=== PATIENT | female | born 1995 | race Caucasian/White ===

== ENCOUNTER 2022-02-26 11:53 | Outpatient (CLI) | payer OTHER, SELFPAY ==
[2022-02-26 12:54] LABS: Basophils Absolute Auto 0.1 K/mm3 (0.0-0.1); Basophils Percent Auto 0.3 % (0.2-1.2); Eosinophils Absolute Auto 0.2 K/mm3 (0-0.3); Eosinophils Percent Auto 1.1 % (0-4.4); Hematocrit 38.5 % (37.0-47.0); Immature Granulocyte Absolute 0.07 K/mm3 (0.00-0.031); Immature Granulocyte Percent A 0.5 % (0-0.5); Lymphocytes Absolute Auto 3.62 K/mm3 (0.9-3.2); Mean Corpuscular HGB Conc 33.8 g/dl (32-36); Mean Corpuscular Hemoglobin 29.5 pg (26-34); Mean Corpuscular Volume 87.3 fl (80-100); Mean Platelet Volume 11.4 fl (7.4-10.4); Monocytes Absolute Auto 0.7 K/mm3 (0.1-0.6); Monocytes Percent Auto 4.5 % (2.6-8.5); Neutrophils Absolute Auto 9.9 K/mm3 (1.3-6.7); Neutrophils Percent Auto 68.6 % (45.5-73.1); Platelet Count Result 270 k/mm3 (150-375); Red Blood Count 4.41 M/mm3 (4.2-5.4); Red Cell Distribution Width 11.7 % (11.5-14.5); White Blood Count 14.5 K/mm3 (4.5-10.0)
[2022-02-26 13:52] LABS: HIV 1/2 Ab P24 Ag Result Negative (Negative)
[2022-02-26 14:17] LABS: Hepatitis B Surface Antigen Negative (Negative); Rubella IgG Antibody 22.6 IU/ML
[2022-02-28 06:16] LABS: Rapid Plasma Reagin Non-Reactive (NonReactive)
[2022-03-01 08:37] LABS: CMV IgG Antibody <0.60 U/mL (<0.60)
[2022-03-07 13:06] LABS: SMA 2.0 RISK VARIANT NOT DETECTED
[2022-03-17 15:24] LABS: SMA Results Received Yes
== END 2022-02-26 11:54 | disposition home or self-care (01) ==
LOC: ANHLAB 11:55
PROVIDERS: PCP Family Medicine; Visit Provider Obstetrics & Gynecology
DX: N91.2 Amenorrhea, unspecified (principal)
CPT/HCPCS: 36415; 81329; 84702; 85025; 86592; 86644; 86703; 86747; 86762; 86787; 86850; 86900; 86901; 87086; 87340; G0432

== ENCOUNTER 2022-03-09 16:09 | Outpatient (CLI) | payer OTHER, SELFPAY ==
--- NOTE | ~2022-03-09 | US_ITS ---
EXAMINATION: US OB <=14 wk fetus w TV DATE: 03/09/2022 16:59 INDICATION: Evaluate gestational age. TECHNIQUE: Real-time transabdominal obstetric ultrasound. FINDINGS: No prior studies for comparison. The uterus measures 15 x 5.8 x 9.6 cm. There is an intrauterine gestational sac, with pole iden tified. The crown rump length measures 6.1 cm, which correlates with a estimated gestational age of 13 weeks 1 day. heart tones are identified measuring 165 bpm. Right ovary is normal measuring 3.6 x 2.4 x 2.4 cm. Left ovary is nonvisualized. No free fluid identified in the pelvic cul-de-sac. IMPRESSION: 1. SL IUP with an EGA of 13 weeks, 1 days (EDC by current ultrasound of 09/13/2022). Reviewed, dictated and finalized at location A. IMPRESSION: 1. SL IUP with an EGA of 13 weeks, 1 days (EDC by current ultrasound of 022).
== END 2022-03-09 16:10 | disposition home or self-care (01) ==
PROVIDERS: PCP Family Medicine; Visit Provider Obstetrics & Gynecology
DX: Z34.91 Encounter for supervision of normal pregnancy, unspecified, first trimester (principal); N94.89 Other specified conditions associated with female genital organs and menstrual cycle; Z3A.13 13 weeks gestation of pregnancy
CPT/HCPCS: 76801; 76817

== ENCOUNTER 2022-04-27 15:28 | Outpatient (CLI) | payer OTHER, SELFPAY ==
--- NOTE | ~2022-04-27 | US_ITS ---
EXAMINATION: US OB /maternal detail DATE: 04/27/2022 16:40 INDICATION: Encounter for supervision of other normal . TECHNIQUE: Real-time ultrasound of the pelvis was performed. COMPARISON: None. FINDINGS: There is a single living fetus in breech presentation. The placenta is anterior. heart rate is 142 beats per minute (bpm). Amniotic fluid volume is subjectively normal. The following biometric data were obtained: Biparietal diameter (BPD): 4.6 cm; head circumference (HC): 18.1 cm; abdominal circumference (AC): 15 .5 cm; femur length (FL): 3.4 cm. These measurements are concordant. Estimated weight is 367 g +/- 55 g, which correlates with the 73rd percentile when 09/13/22 is u sed as estimated date of delivery. As single measurements, these parameters are each equal to the following estimated gestational ages: BPD: 19 weeks 5 days. HC: 20 weeks 3 days. AC: 20 weeks 5 days. FL: 20 weeks 5 days. estimated gestational age based solely on measurements from this exam is 20 weeks 3 days +/- 1 weeks 3 days. The cerebral ventricles, cerebellum, cisterna magna, nuchal fold, lip, and visualized portions of the spine are normal. The heart is normal. The diaphragm, stomach, kidneys, and bladder are normal. Ther e are two umbilical arteries to yield a 3-vessel cord. The cord insertion is normal. IMPRESSION: 1. Single living fetus in breech presentation. 2. Estimated weight is 367 g +/- 55 g, which correlates with the 73rd percentile when 09/13/22 is used as estimated date of delivery. This date was set by ultrasound on 03/09/2022. 3. Normal anatomic survey. Reviewed, dictated and finalized at location A. IMPRESSION: 1. Single living fetus in breech presentation. 2. Estimated weight is 367 g +/- 55 g, which correlates with the 73rd pe rcentile when 09/13/22 is used as estimated date of delivery. This date was set by ultrasound on 03/09/2022. 3. Normal anatomic survey.
== END 2022-04-27 15:29 | disposition home or self-care (01) ==
PROVIDERS: PCP Family Medicine; Visit Provider Obstetrics & Gynecology
DX: Z34.82 Encounter for supervision of other normal pregnancy, second trimester (principal); Z3A.20 20 weeks gestation of pregnancy
CPT/HCPCS: 76805

== ENCOUNTER 2022-07-18 09:14 | Outpatient (CLI) | payer OTHER, SELFPAY ==
[2022-07-18 10:30] LABS: Basophils Absolute Auto 0.1 K/mm3 (0.0-0.1); Basophils Percent Auto 0.4 % (0.2-1.2); Eosinophils Absolute Auto 0.4 K/mm3 (0-0.3); Eosinophils Percent Auto 2.5 % (0-4.4); Hematocrit 34.5 % (37.0-47.0); Hemoglobin 11.1 g/dL (12.0-15.0); Immature Granulocyte Absolute 0.16 K/mm3 (0.00-0.031); Immature Granulocyte Percent A 1.2 % (0-0.5); Lymphocytes Absolute Auto 2.98 K/mm3 (0.9-3.2); Lymphocytes Percent Auto 21.7 % (18.3-44.2); Mean Corpuscular HGB Conc 32.2 g/dl (32-36); Mean Corpuscular Hemoglobin 29.2 pg (26-34); Mean Corpuscular Volume 90.8 fl (80-100); Mean Platelet Volume 11.1 fl (7.4-10.4); Monocytes Absolute Auto 0.8 K/mm3 (0.1-0.6); Monocytes Percent Auto 5.7 % (2.6-8.5); Neutrophils Absolute Auto 9.4 K/mm3 (1.3-6.7); Neutrophils Percent Auto 68.5 % (45.5-73.1); Platelet Count Result 243 k/mm3 (150-375); Red Cell Distribution Width 12.7 % (11.5-14.5); White Blood Count 13.8 K/mm3 (4.5-10.0)
[2022-07-18 10:39] LABS: Glucose 1 Hour PP 50gm Dose 108 mg/dL
[2022-07-18 11:20] LABS: HIV 1/2 Ab P24 Ag Result Negative (Negative)
== END 2022-07-18 09:15 | disposition home or self-care (01) ==
PROVIDERS: PCP Family Medicine; Visit Provider Obstetrics & Gynecology
DX: Z34.90 Encounter for supervision of normal pregnancy, unspecified, unspecified trimester (principal); Z3A.00 Weeks of gestation of pregnancy not specified
CPT/HCPCS: 36415; 82947; 85025; 86703; G0432

== ENCOUNTER 2022-09-11 17:42 | Observation (INO) | payer OTHER, SELFPAY ==
--- NOTE | 2022-09-11 20:43 | OBADM ---
This patient, Francheska Watters, admitted to the OB room Labor/Delivery/Recovery 106 for observation. Patient/family oriented to hospital policies and general routines including ID bracelet, bed and alarms, visiting hours, pain management, procedures, bathroom and other care routines, personal items, smoking policy, room service/diet, and visiting hours. Patient/Family are encouraged to report perceived risks to care and to ask questions if they do not understand what they are told or what they should do.
--- NOTE | 2022-09-11 20:52 | PC.NURSE ---
patient educated on when to return to OB department. patient verbalizes understanding on when to call OB or come in. No complaints or concerns at this time.
--- NOTE | 2022-09-12 15:51 | PM.OBTRLD ---
OB - Triage/Final Diagnosis Visit Information Date of evaluation: 09/11/22 Reason for evaluation: threatened labor Comments/Additional reasons for admission: I have assessed the risk for this patient, Francheska Watters, and determined that she would benefit from observation care.
== END 2022-09-11 21:05 | disposition home or self-care (01) ==
PROVIDERS: Admitting Provider Obstetrics & Gynecology; PCP Family Medicine; Visit Provider Student in an Organized Health Care Education/Training Program
DX: O47.1 False labor at or after 37 completed weeks of gestation (principal); Z3A.39 39 weeks gestation of pregnancy
CPT/HCPCS: 59025; G0378; G0379

== ENCOUNTER 2022-09-13 06:40 | Inpatient (IN) | payer OTHER, SELFPAY ==
[2022-09-13] VITALS (172 sets, daily range): BP systolic 90–152; BP diastolic 47–107; PULSE 68–199; TEMP 36.7–37.5; O2SAT 95–100; BMI 33.7
--- NOTE | 2022-09-13 07:55 | WPDOBADMIT ---
Obstetrics - Admit Note Admission Note: record reviewed. No pertinent additions to the history and/or any subsequent changes in the physical findings that are not consistent with the expected course of the were found. Additions to the history and/or subsequent changes in the physical findings follow: Francheska is a 27yo @ 39.6wks who presented in labor. - Covid infection in 10/2021 FHT's: 130's/mod chandu/ + accels/ no decels - cat 1 TOCO: ctx's q2-4min Cervix: 2.5/90/-2 Membranes: intact Presentation: cephalic Will monitor contractions; if no change in 2-4 hours will start Pitocin augmentation
--- NOTE | 2022-09-13 08:00 | WPDHPUPDATE1 ---
History and Physical Update Update Date/Time: 09/13/22 08:00 History and Physical has been reviewed, including an updated exam of the patient. There are NO changes in the patient's condition. Risks, benefits, and alternatives have been discussed and questions answered. Patient agrees to proceed with procedure.
[2022-09-13 09:28] LABS: Basophils Absolute Auto 0.1 K/mm3 (0.0-0.1); Basophils Percent Auto 0.4 % (0.2-1.2); Eosinophils Absolute Auto 0.2 K/mm3 (0-0.3); Eosinophils Percent Auto 1.1 % (0-4.4); Hematocrit 39.6 % (37.0-47.0); Hemoglobin 12.9 g/dL (12.0-15.0); Immature Granulocyte Absolute 0.09 K/mm3 (0.00-0.031); Immature Granulocyte Percent A 0.6 % (0-0.5); Immature Platelet Fraction Pct 16.1 % (0.9-11.2); Lymphocytes Absolute Auto 3.09 K/mm3 (0.9-3.2); Lymphocytes Percent Auto 19.3 % (18.3-44.2); Mean Corpuscular HGB Conc 32.6 g/dl (32-36); Mean Corpuscular Hemoglobin 28.9 pg (26-34); Mean Corpuscular Volume 88.6 fl (80-100); Mean Platelet Volume 13.5 fl (7.4-10.4); Monocytes Absolute Auto 0.9 K/mm3 (0.1-0.6); Monocytes Percent Auto 5.3 % (2.6-8.5); Neutrophils Absolute Auto 11.8 K/mm3 (1.3-6.7); Neutrophils Percent Auto 73.3 % (45.5-73.1); Platelet Count Result 220 k/mm3 (150-375); Red Blood Count 4.47 M/mm3 (4.2-5.4); Red Cell Distribution Width 13.4 % (11.5-14.5)
--- NOTE | 2022-09-13 10:08 | LDADM ---
This patient, Francheska Watters, was admitted to Labor/Delivery/Recovery 106 on 09/13/22 at 06:40. Plans for labor, pain management and were discussed with patient. Patient/family oriented to hospital policies and general routines including ID bracelet, bed and alarms, visiting hours, pain management, procedures, bathroom and other care routines, personal items, smoking policy, room service/diet and guest tray routines, security routines, and visiting hours. Patient/Family are encouraged to report perceived risks to care and to ask questions if they do not understand what they are told or what they should do. See OBIX for further documentation.
--- NOTE | 2022-09-13 11:53 | PM.OBPNLAB ---
Pain Control Date/time seen: 09/13/22 11:53 Pain control: tolerating well Pelvic Exam Dilation (cm): 4 Effacement (%): 90 station: -1 Amniotic membrane status: Intact Contractions Monitor mode: External Contraction frequency: 2 (-4) Contraction pattern: Regular Status status: Category l Assessment and Plan Plan: continuous present management Comments: - will avoid AROM/pitocin if making cervical change as she desires to go natural
[2022-09-13] MEDS: fentaNYL CITRATE INJ (*CRX) 100 MCG/2 ML VIAL 50 MCG IV PUSH (15:12)
[2022-09-13] MEDS: LACTATED RINGERS 1,000 ML 125 ML IV CONT ×3 (15:47→21:18)
[2022-09-13 16:13] LABS: Rapid Plasma Reagin Non-Reactive (NonReactive)
--- NOTE | 2022-09-13 16:40 | WPDANESEPP ---
Anes - Eval Pre Procedure Procedure: Labor epidural Date/Time: 09/13/22 16:40 Surgeon: Sergo Preop Diagnosis: Abdominal pain with contractions Pre Op Diagnosis: Labor Patient Data Age: 27 Gender: F Height: 1.68 m Weight: 95 kg Last Vital Signs Temp 98.2 F 09/13/22 12:39 Pulse 83 09/13/22 16:00 BP 122/58 L 09/13/22 16:00 O2 Del Method Room Air 09/13/22 07:00 Allergies Allergy/AdvReac Type Severity Reaction Status Date / Time sertraline AdvReac Unknown Nausea Verified 09/07/22 15:15 Home Medications Medication Instructions Recorded Confirmed Type doxylamine succinate 25 mg tablet 25 mg PO QHS #60 tabs 02/01/22 08/24/22 Rx (Unisom (doxylamine)) prenat.vits,martha,[id number] 1 tablet PO DAILY 02/01/22 08/24/22 History pyridoxine (vitamin B6) 25 mg 25 mg PO TID #120 tabs 02/01/22 08/24/22 Rx tablet magnesium oxide 400 mg PO DAILY #90 tabs 03/31/22 08/24/22 Rx riboflavin (vitamin B2) 100 mg 400 mg PO DAILY 90 days #360 tabs 03/31/22 08/24/22 Rx tablet Laboratory Tests 09/13/22 09/13/22 09/13/22 07:59 07:59 09:10 WBC 16.0 K/mm3 H K/mm3 (4.5-10.0) RBC 4.47 M/mm3 M/mm3 (4.2-5.4) Hgb 12.9 g/dL g/dL (12.0-15.0) Hct 39.6 % % (37.0-47.0) MCV 88.6 fl fl (80-100) MCH 28.9 pg pg (26-34) MCHC 32.6 g/dl g/dl (32-36) RDW 13.4 % % (11.5-14.5) Plt Count 220 k/mm3 k/mm3 (150-375) MPV 13.5 fl H fl (7.4-10.4) Immature Gran % (Auto) 0.6 % H % (0-0.5) Neut % (Auto) 73.3 % H % (45.5-73.1) Lymph % (Auto) 19.3 % % (18.3-44.2) Sutton % (Auto) 5.3 % % (2.6-8.5) Eos % (Auto) 1.1 % % (0-4.4) Baso % (Auto) 0.4 % % (0.2-1.2) Lymph # (Auto) 3.09 K/mm3 K/mm3 (0.9-3.2) Sutton # (Auto) 0.9 K/mm3 H K/mm3 (0.1-0.6) Eos # (Auto) 0.2 K/mm3 K/mm3 (0-0.3) Baso # (Auto) 0.1 K/mm3 K/mm3 (0.0-0.1) Abs Immat Gran (auto) 0.09 K/mm3 H K/mm3 (0.00-0.031) Absolute Neuts (auto) 11.8 K/mm3 H K/mm3 (1.3-6.7) Absolute Nucleated RBC 0.0 K/mm3 K/mm3 (0.0-0.012) Nucleated RBC % 0.0 % % (0.0-0.2) % Immature Plt Fraction 16.1 % H % (0.9-11.2) RPR Non-reactive (NonReactive) Blood Type O Positive Antibody Screen Negative : gestational age HCG: positive Patient hx anesthesia problems: none Family hx anesthesia problems: none Results Review: All pre-operative results and documents have been reviewed as part of the pre-operative evaluation. [facility] Past Medical History Medical History (Updated 09/13/22 @ 16:42 by Rene Feldman CRNA) Anxiety Depression Obesity and not yet delivered Family History Family History Grandparent Family history of hypercholesterolemia Hypertension Family history of elevated blood lipids Family history of cardiovascular disease Cerebrovascular accident Skin cancer Father Depression Mother Family history of elevated blood lipids Social History Social History Smoking status: Never smoker Alcohol intake: never Substance use: never Substance use type: does not use Lack of Transportation: No Lack of Food: Never True Current Housing: I Do Not Have Housing Concerned About Future Housing: No Difficulty Paying Gas/Electric Bills: No Difficulty Paying for Meds: No Currently Unemployed: No Education: Associate Degree Difficulty w/ Childcare or Family Care: No 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
[2022-09-13] MEDS: ONDANSETRON INJ 4 MG/2 ML VIAL IV PUSH (17:03)
[2022-09-13] MEDS: FAMOTIDINE 20 MG/2 ML VIAL (17:04)
--- NOTE | 2022-09-13 17:16 | PM.OBPNLAB ---
Pain Control Date/time seen: 09/13/22 17:16 Pain control: epidural Pelvic Exam Dilation (cm): 4 (.5) Effacement (%): 90 station: -1 Amniotic membrane status: Ruptured (clear 1715) Contractions Monitor mode: External Contraction frequency: 2 (-4) Contraction pattern: Regular Status status: Category ll Comments: occasional variables Assessment and Plan Assessment: induction ongoing Plan: continuous present management Comments: check in 2 hours; if no change, start pitocin augmentation w/ IUPC
[2022-09-13] MEDS: OXYTOCIN 30 UNITS/NS 500 ML 30 UNITS/500 ML BAG IV CONT (23:15)
--- NOTE | 2022-09-13 23:29 | PM.OBPRVD ---
OB - Delivery Note Procedure Delivery date: 09/13/22 Delivery augmentation: Rupture of Membranes Delivery monitor: External FHT and External Uterine Route of delivery: Laceration Description: Periurethral (bilateral) Delivery repair: vicryl Specimen: Yes (placenta) Quantitative Blood Loss (ml): 100 Anesthesia type: Epidural Disposition: Floor Baby Date of : 09/13/22 Time of : 23:11 Weeks of gestation at delivery: 39 (.6) Infant gender: Female Weight (pounds): 6 Weight (ounces): 11 presentation: vertex position: Left Occiput Anterior Placenta delivery description: Expressed Cord Vessel Description: 3 Vessels, Clamped/Cut and Delayed Cord Clamping score one minute: 8 score five minutes: 9 Narrative: Francheska progressed to complete dilation with strong desire to push. She pushed with good maternal effort and delivered the head over intact perineum. No nuchal cord was palpated and she easily delivered the 's shoulders and body without complication. The was immediately placed skin to skin where spontaneous cry was heard and bulb suction was performed. Pedi was present at delivery due to thick meconium. Delayed cord clamping was performed. The umbilical cord was then clamped and cut. With Pitocin running and gentle downward traction on the cord, the placenta delivered without complications. Bimanual massage was performed and slight uterine atony was noted but resolved with massage. She was examined and bilateral periurethral lacerations were noted and repaired using 3-0 Vicryl in a single stitch. Good uterine tone with minimal bleeding was noted. Sponge, lap, instrument, and needle counts were correct at the end the procedure. Mom and baby were left bonding in the birthing suite in stable condition. [facility] Delivery Billing Delivery Delivery: Delivery Charge
[2022-09-14] VITALS (25 sets, daily range): BP systolic 102–124; BP diastolic 43–77; PULSE 84–174; RESP 16–18; TEMP 36.3–36.9; O2SAT 97–100
[2022-09-14] MEDS: BENZOCAINE 20% AER SPR (*SP) 56 GM CAN 1 SPRAY TOPICAL (01:23)
--- NOTE | 2022-09-14 02:20 | OBPPTRN ---
Patient transferred to post room #286 via W/C. Support person present. Oriented to unit, room, information board, rooming in, admission packet and security measures. Patient verbalizes understanding.
[2022-09-14 05:28] LABS: Hematocrit 34.6 % (37.0-47.0); Hemoglobin 11.7 g/dL (12.0-15.0)
--- NOTE | 2022-09-14 08:58 | WPDANLDPN2 ---
Anes-Prog Note L&D Date/Time: 09/14/22 08:58 Comfortable throughout: labor and delivery Neuraxial method: epidural Epidural/Spinal procedure site: clean & non-tender Neuro status: Neuro function grossly intact. Cardiovascular status: normal Respiratory status: normal Airway patency: baseline Mental status: baseline Post-Op hydration status: normal Vital Signs: Last Vital Signs Temp 98.3 F 09/14/22 08:53 Pulse 90 09/14/22 08:53 Resp 16 09/14/22 08:53 BP 102/43 L 09/14/22 08:53 Pulse Ox 98 09/14/22 08:53 O2 Del Method Room Air 09/14/22 02:35 Pain score (VAS): 0 I/O: Intake & Output 09/13/22 09/14/22 09/14/22 23:59 07:59 15:59 Intake Total 2000 Output Total 100 350 Balance 1900 -350 Post-procedural complaints: none Patient feedback: Patient satisfied with anesthetic care.
[2022-09-14] MEDS: MULTIVIT/MIN/PREN/FOL AC/IRON TABLET 1 TAB PO (09:19)
[2022-09-14] MEDS: DOCUSATE SODIUM 100 MG CAPSULE PO (09:19)
--- NOTE | 2022-09-14 09:52 | PC.NURSE ---
On 09/14/22, the student, Calista Ervin, provided care and completed [facility] documentation on this patient. I have reviewed the student's documentation and agree with the findings.
--- NOTE | 2022-09-14 12:44 | PM.OBPNVD ---
OB - PN: Subj Subjective Date/time seen: 09/14/22 12:44 Narrative: PPD#1 Francheska reports doing well today. 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 Her pain is controlled. She is tolerating regular diet, voiding, passing gas, and ambulating without issues. She is breast feeding. OB - PN: Obj Data Labs 09/14/22 05:19 Labs: Laboratory Results - last 24 hr 09/13/22 09/14/22 07:59 05:19 Hgb 11.7 L Hct 34.6 L RPR Non-reactive OB - PN A/P Assessment and Plan (1) Normal vaginal delivery of first : Code(s): O80 - Encounter for full-term uncomplicated delivery Status: Acute Plan day: 1 Plan: routine care and discharge home (tomorrow AM) Comments: - Pelvic rest; take meds as prescribed - ER return precautions: fever, n/v/abd pain, bleeding, HTN Time Spent With Patient Time: Total time spent is greater than 50% in coordination of care (as documented) at patient's floor/unit and/or counseling patient: Review of Systems Constitutional: Constitutional: Denies chills, Denies fever(s) and Denies headache(s) Eyes: Eyes: Denies change in vision ENT: Denies dizziness and Denies headache(s) Cardiovascular: Cardiovascular: Denies chest pain, Denies palpitations and Denies dyspnea Respiratory: Respiratory: Denies cough and Denies dyspnea Gastrointestinal: Gastrointestinal: Denies nausea and Denies vomiting Neurologic: Denies dizziness and Denies headache(s) Endocrine: Endocrine: Denies palpitations Exam Const: General: cooperative, comfortable and no acute distress Orientation/consciousness: patient oriented x3 Resp: Effort & Inspection: normal respiratory effort Auscultation: clear to auscultation bilaterally Cardio: Rate: regular rate GI: Inspection: non-distended GI Palp: No abdominal tenderness and Yes Soft to palpation Auscultation: normal bowel sounds : Other: fundus firm Skin: General skin exam: normal color Neuro: General: patient oriented x3 Extrem: General: normal to inspection Psych: Appearance: grossly normal Affect: normal affect Attitude: cooperative
[2022-09-15 07:45] VITALS: BP 121/71; PULSE 80; RESP 16; TEMP 37.2; O2SAT 98
[2022-09-15 08:00] VITALS: PULSE 80; RESP 16; O2SAT 98
[2022-09-15] MEDS: DOCUSATE SODIUM 100 MG CAPSULE PO (09:32)
[2022-09-15] MEDS: MULTIVIT/MIN/PREN/FOL AC/IRON TABLET 1 TAB PO (09:33)
--- NOTE | 2022-09-15 10:04 | PC.NURSE ---
[id number] Introductions were made, then consulted with patient to assess needs related to . Mother led the conversation with her?plans to feed?her infant and the?experience so far. Mother voiced understanding of information and will call for the next breastfeed. Reported to primary RN.
--- NOTE | 2022-09-15 10:25 | PC.NURSE ---
Patient viewed the discharge video Mother & Baby Care, The First Two Weeks . Patient was given the opportunity and encouraged to ask questions. Patient verbalized understanding of information shared and has been given the mother/baby guide for home reference.
--- NOTE | 2022-09-15 11:46 | PC.NURSE ---
[id number] Mother has infant independently latched to the left breast using cross cradle positioning. There is rocking motion, good suck/swallow ratios and mother denies pain. After 15 minutes of self detached and mother's nipple looked misshaped in a pinched appearance. After changing a wet diaper was demonstrating feeding cues. Mother was willing to practice football positioning to improve 's latching. latched optimally with big, open, wide gape demonstrating rocking motion, suck/swallow/pausing and mother states there's no pain to the left breast using football positioning. Father's questions were answered. Education was reviewed using laminated latch 1-2-3. Nipple was not misshaped after the . Mother encouraged to work with on big, open, deep latch and changing positioning while infant is learning optimal latching. Mother is feeding appropriately for growth of infant and understands stimulating to eat if needed. has had appropriate feedings in the last 24 hours meets the outcomes for weight, output and jaundice at this time. Mother states she is confident to continue effectively her at home or when to call for assistance and denies any additional assistance or education at this time. Reinforced understanding of milk production, transition of milk, signs of adequate intake, prevention/relief of engorgement, responsive after visualizing feeding cues, the different methods of stimulating infant to breastfeed 2-3 hours after the start of the last feeding, community resources, medication information reviewed per [employer] and when to call a provider using the resource of the mom and baby guide/[facility] website. Parents voiced understanding of the education shared. Reported to the primary RN.
[2022-09-16 10:07] VITALS: BP 127/84; PULSE 85; RESP 16; TEMP 37.1; O2SAT 100
--- NOTE | 2022-09-19 11:07 | PM.OBDSVD ---
DS: Admitting Diagnosis Discharge Date 09/15/22 Admitting Diagnosis Active labor DS: Discharge Diagnosis Discharge Diagnosis (1) Normal vaginal delivery of first : Code(s): O80 - Encounter for full-term uncomplicated delivery Status: Acute OB - DS: Summary OB Procedures : Ultrasound OB Procedures Intrapartum: Spontaneous Vag Delivery OB Procedures: : None Peripartum Data Infant Delivery Method: Natural Vaginal Laceration Description: Periurethral Episiotomy description: None complications: none [place] 1: Gender: Female Disposition of : home Status at Discharge Functional status at discharge: independent ambulation Overall status at discharge: patient is back to baseline Time Spent with Patient Time attestation: Total time spent providing and/or coordinating discharge services: Time spent: Less than 30 minutes Exam Const: General: cooperative, comfortable and no acute distress Orientation/consciousness: patient oriented x3 Resp: Effort & Inspection: normal respiratory effort Auscultation: clear to auscultation bilaterally Cardio: Rate: regular rate GI: Inspection: non-distended GI Palp: No abdominal tenderness and Yes Soft to palpation Auscultation: normal bowel sounds : Other: fundus firm Skin: General skin exam: normal color Neuro: General: patient oriented x3 Extrem: General: normal to inspection Psych: Appearance: grossly normal Affect: normal affect Attitude: cooperative DS: Data Data Completed and Pending Completed studies during hospitalization: Pending at discharge 09/13/22 23:14 Surgical [PTH] Routine Discharge Plan Discharge Attending physician on discharge: Jada Trotter Consulting providers: Rene Feldman ; Tiffany Bynum Discharging Clinician: Jada Trotter Anticipated Discharge Date/Time: 09/15/22 10:00 Patient Disposition: Home, Self-Care Activity: may shower, may drive after 2 weeks and pelvic rest Diet: regular Discharge Instructions: Education: Mom and Baby Guide Given to: Mother Follow-Up: Call your delivering provider's office for an appointment to be seen in: 4 Weeks Mom [facility] follow[facility]up [facility]. Appointment Date/Time: Friday, September 16, 2022 at 10:00 a.m. What to expect at your follow-up visit: Blood Pressure Check Physical Assessment Call [phone] if you are unable to keep your appointment time. BREAST CARE: * Wear a snug supportive bra. * For engorgement discomfort: Breast Feeding: * Apply warm moist washcloths * Express milk as needed to relieve engorgement * Wear loose clothing * For sore nipples: * Identify correct latch-on * Apply warm moist washcloths before and after nursing * Air dry nipples after nursing * May apply Lansinoh cream to nipples EPISIOTOMY/PERINEAL CARE: * Until bleeding stops, use your kike bottle after urinating * Change your pad frequently throughout the day * You may take sitz baths several times a day (fill your bathtub with warm water and soak for 20 minutes.) Do NOT bathe in the water * No tub baths until seen by your physician - You may shower ACTIVITY: * Rest as much as possible. * Do not exercise or lift anything heavier than your baby (such as laundry or other children.) * Avoid stairs or driving as much as possible. * Do not put anything into the vagina. No douching, tampons, or sexual activity until seen by physician. NOTIFY PHYSICIAN IF YOU HAVE ANY QUESTIONS OR IF ANY OF THE FOLLOWING SYMPTOMS OCCUR: * If your perineum becomes red, swollen, or more painful than what you have experienced in the hospital. * If your vaginal bleeding becomes foul smelling. * If your vaginal bleeding becomes more heavy than a period or if your bleeding changes from pink
== END 2022-09-15 12:00 | disposition home or self-care (01) | DRG 807 ==
LOC: ANHLDR 07:40 → ANHOB2 09-14 02:28
PROVIDERS: Admitting Provider Obstetrics & Gynecology; PCP Family Medicine; Visit Provider Obstetrics & Gynecology
DX: O77.0 Labor and delivery complicated by meconium in amniotic fluid (principal); Z37.0 Single live birth; Z3A.40 40 weeks gestation of pregnancy; O36.8330 Maternal care for abnormalities of the fetal heart rate or rhythm, third trimester, not applicable or unspecified; O71.82 Other specified trauma to perineum and vulva
CPT/HCPCS: 36415; 85014; 85018; 85025; 85055; 86592; 86850; 86900; 86901; 88307; A9270; J2405; J2590; J2795; J3010; J7120